=== PATIENT | male | born 1960 | race Two or more races ===

== ENCOUNTER 2022-10-02 07:42 | Emergency (ER) | payer BC, OTHER ==
[~2022-10-02] VITALS: Ht 170.2 cm; Wt 86.0 kg
[2022-10-02 08:35] VITALS: BP 143/73
[2022-10-02] MEDS ORDERED: IBUP800T27 PO (08:41)
[2022-10-02] MEDS ORDERED: HYDROcodone-ACET 5/325MG TAB PO ONE (08:45)
== END 2022-10-02 09:00 | disposition home or self-care (01) ==
LOC: ER 07:42
DX: S83.92XA Sprain of unspecified site of left knee, initial encounter (principal); S83.91XA Sprain of unspecified site of right knee, initial encounter; Z88.6 Allergy status to analgesic agent; W01.0XXA Fall on same level from slipping, tripping and stumbling without subsequent striking against object, initial encounter; Y93.89 Activity, other specified; Y92.89 Other specified places as the place of occurrence of the external cause; Y99.8 Other external cause status
CPT/HCPCS: 73560